=== PATIENT | female | born 1980 | race Caucasian/White ===

== ENCOUNTER → 2021-05-07 | Outpatient (CLI) | payer BC | LOC: M LAB 14:16 | PROVIDERS: ATTEND Nurse Practitioner Family | DX: E03.9 Hypothyroidism, unspecified (principal) ==

== ENCOUNTER → 2021-11-09 | Outpatient (CLI) | payer BC | LOC: M SLEEP HO 09:36 | PROVIDERS: ATTEND Nurse Practitioner Family | DX: G47.19 Other hypersomnia (principal) ==

== ENCOUNTER → 2022-07-11 | Outpatient (REF) | LOC: M LABSMTC 11:54 | PROVIDERS: ATTEND Family Medicine | DX: Z11.52 Encounter for screening for COVID-19 (principal) ==